=== PATIENT | female | born 1980 | race Caucasian/White ===

== ENCOUNTER 2022-04-24 10:15 | Outpatient (CLI) | payer BC, SELFPAY ==
--- NOTE | 2022-04-24 11:00 | NEURO_ITS ---
Impression: # Complains of right upper extremity fatigue and pain. # Subtle evolving right Carpal Tunnel Syndrome. # No ulnar neuropathy. # Normal needle/EMG exam, proximal as well distal. # Clinical correlation recommended. Nerve Conduction Studies Anti Sensory Summary Table Stim Site NR Peak (ms) P-T Amp (?V) Site1 Site2 Delta-P (ms) Dist (cm) Federico (m/s) Right Median Anti Sensory (2-3nd Digit) Wrist 2.9 79.2 Wrist 2-3nd Digit 2.9 14.0 48 Wrist 2.8 62.9 Wrist 2-3nd Digit 2.9 14.0 48 Right Radial Anti Sensory (Base 1st Digit) Wrist 1.9 52.1 Wrist Base 1st Digit 1.9 0.0 Right Ulnar Anti Sensory (5th Digit) Wrist 2.4 88.0 Wrist 5th Digit 2.4 14.0 58 Motor Summary Table Stim Site NR Onset (ms) O-P Amp (mV) Site1 Site2 Delta-0 (ms) Dist (cm) Federico (m/s) Right Median Motor (Abd Poll Brev) Wrist 3.6 3.3 Elbow Wrist 4.2 25.0 60 Elbow 7.8 2.8 Right Ulnar Motor (Abd Dig Minimi) Wrist 2.7 6.4 A Elbow Wrist 4.4 26.0 59 A Elbow 7.1 6.6 F Wave Studies NR F-Lat (ms) L-R F-Lat (ms) Right Median (Mrkrs) (Abd Poll Brev) 24.62 Right Ulnar (Mrkrs) (Abd Dig Min) 25.49 EMG Side Muscle Nerve Root Ins Act Fibs Amp Dur Recrt Comment Right 1stDorInt Ulnar C8-T1 Nml Nml Nml Nml Nml Right Ext Indicis Radial (Post Int) C7-8 Nml Nml Nml Nml Nml Right Ext Digitorum Radial (Post Int) C7-8 Nml Nml Nml Nml Nml Right BrachioRad Radial C5-6 Nml Nml Nml Nml Nml Right PronatorTeres Median C6-7 Nml Nml Nml Nml Nml Right Abd Poll Brev Median C8-T1 Nml Nml Nml Nml Nml Right ABD Dig Min Ulnar C8-T1 Nml Nml Nml Nml Nml Right Biceps Musculocut C5-6 Nml Nml Nml Nml Nml Right Triceps Radial C6-7-8 Nml Nml Nml Nml Nml Right Deltoid Axillary C5-6 Nml Nml Nml Nml Nml MTDD
== END 2022-04-24 10:16 | disposition home or self-care (01) ==
PROVIDERS: PCP Family Medicine; Visit Provider Nurse Practitioner Family
DX: G56.01 Carpal tunnel syndrome, right upper limb (principal); R20.0 Anesthesia of skin; R20.2 Paresthesia of skin
CPT/HCPCS: 95886; 95909

== ENCOUNTER → 2022-11-29 09:15 | Outpatient (CLI) | payer BC, SELFPAY ==
--- NOTE | ~2022-11-29 | XR_ITS ---
XR_CERV2-3V_CR DATE: 11/29/2022 09:27 INDICATION: Neck pain for 2 months. No injury. TECHNIQUE: Lateral, AP and open-mouth views COMPARISON: None FINDINGS: There is straightening of the cervical spine which may be due to muscle spasm. There is moderately severe degenerative disc disease and mild retrolisthesis at C5-C6. Remaining cerv ical interspaces are well preserved. C1 and C2 are normally aligned and the odontoid process is intact. No fracture or dislocation or lock ed facet or prevertebral soft tissue swelling. IMPRESSION: Straightening, likely due to muscle spasm Moderately severe degenerative disc disease and associated mild retrolisthesis at C5-6 Reviewed, dictated and finalized at [facility]. Reviewed, dictated and finalized at [facility].
== END ==
PROVIDERS: PCP Nurse Practitioner Family; Visit Provider Nurse Practitioner Family
DX: S16.1XXA Strain of muscle, fascia and tendon at neck level, initial encounter (principal); X58.XXXA Exposure to other specified factors, initial encounter; M50.322 Other cervical disc degeneration at C5-C6 level
CPT/HCPCS: 72040

== ENCOUNTER → 2023-02-14 08:47 | Outpatient (CLI) | payer BC, SELFPAY ==
--- NOTE | ~2023-02-14 | MR_ITS ---
MRI of the cervical spine Clinical History: Spondylosis Technique: Axial T2-weighted and gradient images, and sagittal T1-weighted, T2-weighted, and STIR becky ges were acquired. Findings: No fracture identified. 3 mm retrolisthesis of C5 over C6 present. No suspicious bone marro w signal abnormality. At C2-C3, C3-C4, and C4-C5, there is no disc bulge or herniation. No spinal canal stenosis, cord comp ression, or neural foraminal narrowing at these levels. At C5-C6, there is disc osteophyte complex and facet arthropathy. There is mild canal stenosis at thi s level with minimal flattening the ventral cord and associated bilateral neural foraminal narrowing. At C6-C7, there is no disc bulge or herniation. No spinal canal stenosis, cord compression, or neural foraminal narrowing. No abnormal signal seen in the spinal cord. Paravertebral soft tissues are unremarkable. Impression: Moderate degenerative spondylosis at C5-C6, as detailed above. 3 mm retrolisthesis of C5 over C6. Reviewed, dictated and finalized at [facility]. Impression: Moderate degenerative spondylosis at C5-C6, as detailed above. 3 mm retrolisthesis of C5 over C6.
== END ==
PROVIDERS: PCP Family Medicine; Visit Provider Family Medicine
DX: M47.812 Spondylosis without myelopathy or radiculopathy, cervical region (principal)
CPT/HCPCS: 72141

== ENCOUNTER 2023-03-31 00:04 | Day surgery (SDC) | payer BC, SELFPAY ==
[2023-03-28 14:41] VITALS: BMI 21.5
--- NOTE | ~2023-03-31 | XR_ITS ---
EXAMINATION: XR fluoroscopy no charge DATE: 03/31/2023 16:08 INDICATION: Epidural steroid injection TECHNIQUE: 2 fluoroscopic images of the spine were obtained during procedure performed by Dr. Marte. R adiologist was not present for the imaging or procedure. The amount of fluoroscopy time used during t his procedure was 0.3 minutes. COMPARISON: None. FINDINGS/IMPRESSION: The needle was advanced via an interspinous approach into the epidural space wit h surrounding epidural contrast at the level of C6-C7. See procedure note for further detail. Reviewed, dictated and finalized at [facility].
--- NOTE | 2023-03-31 09:55 | PM.HPGS ---
History of Present Illness History of Present Illness Consent: Risks, benefits, and alternatives have been discussed and questions answered. Patient agrees to proceed with procedure. Chief complaint: cervical radiculopathy Narrative: So Dickerson is a 42 year old female Present for cervical intralaminar epidural steroid injection for conservative management of cervical radiculopathy. No interval change in medical history, allergies, medications, diagnoses, signs/ symptoms, baseline health or activity or exercise tolerance since last seen on 02/24/2023. 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 She travels to all [employer] facilities for shifts as needed. She is in [employer] school at [employer]. Smoking status: Never smoker Second hand tobacco smoke exposure: No Alcohol intake: current Alcohol use details: Socially Substance use: never Substance use type: does not use Lack of Transportation: No Lack of Food: Never True Current Housing: I Have Housing Concerned About Future Housing: No Difficulty Paying Gas/Electric Bills: No Difficulty Paying for Meds: No Currently Unemployed: No Education: Bachelor's Degree Difficulty w/ Childcare or Family Care: No Living arrangements: with family Occupation/Education: occupation Gender identity (if verbalized by the patient): Female Spiritual care concerns: No Agree to blood products: Yes Meds Home Medications and Allergies Home Medications Medication Instructions Recorded Confirmed Type fluoxetine 10 mg capsule 10 mg PO DAILY #90 caps 11/08/22 03/28/23 Rx Allergies Allergy/AdvReac Type Severity Reaction Status Date / Time ciprofloxacin Allergy Unknown tendonitis Verified 02/24/23 08:06 nitrofurantoin Allergy Unknown hives Verified 02/24/23 08:06 Penicillins Allergy Unknown h Verified 02/24/23 08:06 Exam Const: General: cooperative, healthy appearing, comfortable, no acute distress, well developed, alert, awake and Physically active Nutritional Appearance: well nourished HENMT: Head: normal to inspection Eyes: General: appearance normal, both eyes and all related structures Neck: Neck: normal visual inspection Chest: Chest palpation & inspection: normal inspection of the chest Resp: Effort & Inspection: normal respiratory effort Auscultation: clear to auscultation bilaterally Cardio: Rate: regular rate Rhythm: regular rhythm Peripheral pulses: Peripheral pulses 2+ throughout GI: Inspection: normal to inspection Back/Spine/Pelvis: Cervical Spine: loss of normal cervical lordosis, pain with cervical ROM and other ( mildly positive Spurling's maneuver, Unchanged since last exam.) Thoracic/Lumbar Spine: thoracic and lumbar spine normal to inspection Pelvis: no pain with anterior-posterior compression and no pain with lateral compression Skin: General skin exam: normal color Lesions: no lesions Wounds: no wounds Hair: normal Nails: normal Neuro: General: patient oriented x3, gait normal, moves all extremities, Normal light touch and pain sensation and CN's II-XI intact bilateral
--- NOTE | 2023-03-31 13:42 | WPDHPUPDATE1 ---
History and Physical Update Update Date/Time: 03/31/23 13:42 History and Physical has been reviewed, including an updated exam of the patient. There are NO changes in the patient's condition. Risks, benefits, and alternatives have been discussed and questions answered. Patient agrees to proceed with procedure.
[2023-03-31 14:23] VITALS: BP 110/61; PULSE 81; RESP 16; TEMP 36.2; O2SAT 100
[2023-03-31 15:28] VITALS: BP 124/73; PULSE 74; RESP 16; O2SAT 100
[2023-03-31 15:42] VITALS: BP 120/75; PULSE 98; RESP 18; O2SAT 100
[2023-03-31] MEDS: LIDOCAINE HCL 0.5% LOCAL INJ 50 ML VIAL INFILTRATE (15:56)
--- NOTE | 2023-03-31 16:14 | W.PM.PROC2 ---
Procedure Note - Detailed Date of Procedure 03/31/23 Pre-op Diagnosis cervical radiculopathy Post-op Diagnosis Same Procedure Performed Leftward C6-7 Interlaminar epidural steroid injection with fluoroscopy and contrast control. Surgeon Adrien Marte MD Anesthesia Local Indications Left neck and arm pain. Description of Procedure INFORMED CONSENT: Risks, benefits and alternatives to the procedure were discussed in detail with the patient who expressed explicit understanding and consent to proceed. Patient was informed verbally and in written form regarding the risks associated with the procedure including the low risk of serious infection, bleeding/bruising, allergic reaction, nerve or organ injury, paralysis, procedural site pain or discomfort, worsening pain and/or mobility, failure to treat and/or disfigurement. The patient expressed explicit understanding and consent to proceed. All materials required for the procedure were available prior to procedure start. Site and side was marked prior to procedure and confirmed in the presence of the patient. PROCEDURE IN DETAIL: The patient was brought to the procedural suite and placed in the prone position. Patient's head was positioned and stabilized with a ProneView pillow or equivalent. Patient was made comfortable with use of pillows under the chest, hips and ankles. Skin overlying the injection site was prepared broadly with ChloraPrep applicator and draped in a sterile manner. Aseptic technique was employed throughout. The endplates of the vertebral body at the site of interest were aligned in the AP view. Slight caudad tilt and ipsilateral oblique angulation was utilized to optimize visualization of the targeted posterior intervertebral foramen at C6-7. Local anesthesia was established by infiltration with approximately 5 mL of 2% lidocaine via a 1-1/2 inch 27-gauge needle. A 20-gauge 6-inch Tuohy epidural needle was advanced intermittently until appropriate loss of resistance to air was identified via plastic loss of resistance syringe. Lateral view was used to confirm the appropriate positioning of the needle tip within the posterior epidural space. In the AP view, 2.0 mL of Omnipaque 240 contrast medium was injected after negative aspiration for CSF, blood or other bodily fluid, showing appropriate epidural spread of contrast without evidence of intravascular or intrathecal placement. After negative repeat aspiration for CSF, blood or other bodily fluid, A 4 mL solution containing 10 mg of dexamethasone in sterile PF Normal Saline was injected after negative repeat aspiration. Appropriate spread of the injectate was confirmed with washout of previously injected contrast. No parasthesias were elicited. Needle was removed completely intact without difficulty. Images were saved and documented in the patient chart. Patient's skin was cleansed and sterile bandage applied. The patient tolerated the procedure well. The patient was transported to the recovery area in stable condition where they were observed for an appropriate amount of time prior to discharge, without evidence of complication. The patient was instructed to avoid excessive activity for the next 48 hours, including overhead work, reaching or extended device/computer usage. Showers only for 48 hours. They were instructed not to drive or operate heavy machinery for 24 hours. They are to monitor for severe headaches, fevers, chills, night sweats, erythema/swelling at the site or any other signs of infection, bleeding/bruising, bowel or bladder changes as well as new pain, weakness or numbness in the upper or lower extremity. Should they notice these changes, they are instructed to call our office immediately or report directly to the nearest Emergency Department if no answer or if after posted office hours. CONTRAST WASTED: 28mL Omnipaque 240. Complications None Condition Stable Disposition PACU [facility] Billing Surgery - Charge Forward: Surgery Bill
== END 2023-03-31 16:15 | disposition home or self-care (01) ==
PROVIDERS: PCP Family Medicine; Visit Provider Anesthesiology Pain Medicine
PROC: (CPT 64479; principal; 2023-03-31 15:00)
DX: M47.22 Other spondylosis with radiculopathy, cervical region (principal); M48.02 Spinal stenosis, cervical region
CPT/HCPCS: 64479; 99199; J1030; J1040; J1100